=== PATIENT | female | born 1965 | race Caucasian/White ===

== ENCOUNTER 2021-08-02 05:33 | Outpatient (CLI) | payer BC ==
[~2021-08-02] VITALS: Ht 170.2 cm; Wt 88.6 kg
[2021-08-02] MEDS ORDERED: PANT40TA52 PO (09:35)
[2021-08-02] MEDS ORDERED: SPIR25TA PO (09:35)
[2021-08-02] MEDS ORDERED: FEXO1TAB40 PO (09:37)
[2021-08-02] MEDS ORDERED: MULT-436 PO (09:37)
[2021-08-02] MEDS ORDERED: VITA100T4 PO (09:37)
[2021-08-02] MEDS ORDERED: L.AC1CAP6 PO (09:37)
== END 2021-08-02 09:56 | disposition home or self-care (01) ==
LOC: PREOP 05:33
PROVIDERS: ATTEND Podiatrist Foot & Ankle Surgery
DX: Z01.818 Encounter for other preprocedural examination (principal)

== ENCOUNTER 2021-08-09 06:08 | Day surgery (SDC) | payer BC ==
[~2021-08-09] VITALS: Ht 170.2 cm; Wt 88.6 kg
[2021-08-09] VITALS (13 sets, daily range): BP systolic 103–129; BP diastolic 63–725
[~2021-08-09 06:08] MED LIST: FEXO1TAB40 PO; L.AC1CAP6 PO; MULT-436 PO; PANT40TA52 PO; SPIR25TA PO; VITA100T4 PO
[2021-08-09] MEDS ORDERED: ceFAZolin INJECTION 1,000 MG VIAL IV ONE (06:15)
[2021-08-09] MEDS: LACTATED RINGERS 1,000 ML IV PRN ×2 (06:45→09:10)
--- NOTE | 2021-08-09 07:32 | Progress Note-Pre Operative ---
Pre-Operative Progress Note H&P Reviewed The H&P was reviewed, patient examined and no changes noted. Date Seen by Provider: Aug 09, 2021 Time Seen by Provider: 07:31 Date H&P Reviewed: Aug 09, 2021 Time H&P Reviewed: 07:31 Pre-Operative Diagnosis: Hallux Valgus, Hypertrophic 2nd metatarsal, right NATO HENRIQUEZ DPAdrián Aug 09, 2021 07:32
[2021-08-09] MEDS ORDERED: LIDOCAINE 1% INJ 20 ML VIAL ONE (07:33)
[2021-08-09] MEDS ORDERED: BUPIVACAINE 0.5% 30 ML (SENSORCAINE) VIAL ONE (07:34)
[2021-08-09] MEDS ORDERED: fentaNYL INJ 100 MCG/2 ML AMP ONE (07:38)
[2021-08-09] MEDS ORDERED: MIDAZOLAM 2 MG/2 ML (VERSED) VIAL ONE (07:39)
[2021-08-09] MEDS ORDERED: LIDOCAINE PF 2% 5 ML (XYLOCAINE) VIAL ONE (09:17)
[2021-08-09] MEDS ORDERED: proPOfol 200 MG/20 ML (DIPRIVAN) VIAL IV ONE (09:17)
[2021-08-09] MEDS ORDERED: HYDROmorphone 2 MG/ML VIAL (DILAUDID) ONE (09:17)
[2021-08-09] MEDS ORDERED: ONDANSETRON 4 MG/2 ML (SDV) Z0FRAN ONE (09:17)
[2021-08-09] MEDS ORDERED: SEVOFLURANE (ULTANE) 15 ML INHAL SOLN ONE (11:07)
--- NOTE | 2021-08-09 11:14 | Progress Note-Post Operative ---
Post-Operative Progess Note Surgeon (s)/Fashion Director Party Plan Sales (s) Surgeon NATO HENRIQUEZ DPM Fashion Director Party Plan Sales: none Pre-Operative Diagnosis Hallux Valgus, Hypertrophic 2nd metatarsal, right Post-Operative Diagnosis same Procedure & Operative Findings Date of Procedure 08/09/21 Procedure Performed/Findings Lapidus-Jayy bunionectomy, right 2nd metatarsal osteotomy, right Anesthesia Type General Estimated Blood Loss Estimated blood loss (mL): Minimal Specimens/Packing Specimens Removed none NATO HENRIQUEZ DPM Aug 09, 2021 11:13
[2021-08-09] MEDS ORDERED: LACTATED RINGERS 1,000 ML IV SCH (11:15)
[2021-08-09] MEDS ORDERED: HYDROcodone/APAP 5 MG/325 MG (LORTAB) TAB PO PRN (11:15)
[2021-08-09] MEDS ORDERED: ACHD5005 PO (11:16)
[2021-08-09] MEDS ORDERED: CEPH500C PO (11:16)
--- NOTE | 2021-08-09 11:37 | Anesthesia-General Post-Op ---
General Patient Condition Mental Status/LOC: Same as Preop Cardiovascular: Satisfactory Nausea/Vomiting: Absent Respiratory: Satisfactory Pain: Controlled Complications: Present Post Op Complications Complications See Anesthesia Record. Patient started desaturating and bile noted in LMA approximately 1030. Initial sats in recovery 91%. Once patient awake and oral airway out, SaO2 98%. Will make sure patient is aware on discharge re: potential aspiration in case she begins to show signs of aspiration pneumonia once at home. Follow Up Care/Instructions Patient Instructions None needed. Anesthesia/Patient Condition Patient Condition Patient is doing well, no complaints, stable vital signs, no apparent adverse anesthesia problems. No complications reported per nursing. TAZ BUTLER CRNA Aug 09, 2021 11:37
[2021-08-09] MEDS ORDERED: ONDANSETRON 4 MG/2 ML (SDV) Z0FRAN IVP PRN (11:45)
[2021-08-09] MEDS ORDERED: morphine INJ 10 MG/ML 1ML (SYR OR VIAL) IVP ONE (11:45)
--- NOTE | 2021-08-09 14:06 | Physical Therapy Ortho Eval ---
PT Orthopedic Evaluation Type of Surgery Prior Level of Function Current Living Status: Spouse Locomotion (Upon Admit): Independent Established Durable Medical Eq: None Subjective Subjective Patient reports 0/10 pain currently. Reports feeling dizziness upon sitting up. Patient given time for dizziness to subside and she reports she is ready to attempt gait and steps. Entry Into Home: Stairs With Railing Steps Into Home: 3 Steps Inside Home: 0 Motor Control Motor Control: Motor Control WNL ROM ROM: WFL, except focal deficit Strength Strength: Gen Weak,No Focal Deficit Transfer SCALE: Activities may be completed with or without assistive devices. 4-Uojzkxygce-qzxymho completes the activity by him/herself with no assistance from a helper. 5-Set-up or Clean-up Assistance-helper sets up or cleans up; patient completes activity. [place] assists only prior to or following the activity. 4-Supervision or Touching Assistance-helper provides verbal cues and/or touching/steadying and/or contact guard assistance as patient completes activity. Assistance may be provided throughout the activity or intermittently. 3-Partial/Moderate Assistance-helper does LESS THAN HALF the effort. [place] lifts, holds or supports trunk or limbs, but provides less than half the effort. 2-Substantial/Maximal Assistance-helper does MORE THAN HALF the effort. [place] lifts or holds trunk or limbs and provides more than half the effort. 8-Lstbdfuvk-lcutod does ALL the effort. Patient does none of the effort to complete the activity. Or, the assistance of 2 or more helpers is required for the patient to complete the activity. If activity was not attempted, code reason: 7-Patient Refused. 9-Not Applicable-not attempted and the patient did not perform the activity before the current illness, exacerbation or injury. 10-Not Attempted due to Environmental Limitations-(lack of equipment, weather restraints, etc.). 88-Not Attempted due to Medical Conditions or Safety Concerns. Transfers (B, C, W/C) (QC): 4 Gait Gait Assistive Device: Crutches Right Lower Extremity: Right Weight Bearing Status RLE: Non Weight Bearing Left Lower Extremity: Left Weight Bearing Status LLE: Full Weight Bearing Gait (QC): 3 Distance (QC): 1=up to 49 ft Distance: 20 Gait Level of Assist: 3 Treatment Rendered Treatment: Gait Train Assessment/Goals Goal Time Frame: 1 Visit Safe Ambulation: No Patient ambulates with min A 20 feet total with axillary crutches adjusted and fit to 5'7". Crutches appeared to fit appropriately to her height. Patient ambulates with appropriate hop to gait pattern on the left LE, NWB on the right LE and proper use of crutches, however patient unsteady throughout gait. Attempted ascend/descend 1 step x 3 to mimic entrance to home. Patient was able to ascend 2 steps, descend 1 step, and prior to descent of 2nd step reports she was feeling very hot and required mod/max A for stand to sit into w/c. Patient reports she feels like she is going to pass out. Will attempt stairs again to ensure safe discharge home. Plan Treatment Plan: Discharge PT/Family Agrees to Plan: Yes Time Time In: 1315 Time Out: 1350 Total Billed Treatment Time: 35 Billed Treatment Time Sharad Martinez JOHN A PT Aug 09, 2021 14:06
--- NOTE | 2021-08-09 14:59 | Diagnostic Imaging Report ---
INDICATION: Postop. FINDINGS: Two-view right foot shows postsurgical changes to the first and second metatarsals as well as an osteotomy in the proximal phalanx of the great toe. Alignment appeared anatomic. No suspicious retained opaque foreign body. IMPRESSION: Good appearance of the anatomically aligned postop foot. No suspicious foreign body or acute bony pathology. Dictated by: Dictated on workstation # [id number]
--- NOTE | 2021-08-09 21:22 | OPERATIVE REPORT ---
DATE OF SERVICE: 08/09/2021 SURGEON: Lydia Henriquez DPM. PREOPERATIVE DIAGNOSIS: Hallux abductovalgus metatarsal primus varus, right foot. Secondary diagnosis: Hypertrophic right second metatarsal. POSTOPERATIVE DIAGNOSIS: Hallux abductovalgus metatarsal primus varus, right foot. Secondary diagnosis: Hypertrophic right second metatarsal. PROCEDURES: 1. Modified Lapidus Jayy bunionectomy, right. 2. Second metatarsal osteotomy, right foot. WOUND CLASS: Clean. ANESTHESIA: General. HEMOSTASIS: Pneumatic thigh tourniquet at 250 mmHg. INDICATION: This 56-year-old female presents complaining of painful right foot. Conservative therapy is met with unsatisfactory results and the patient is agreeable to surgical intervention after risks and complications were discussed at length. No guarantees were extended to the patient and she is willing to proceed. DESCRIPTION OF PROCEDURE: The patient was brought back to the operating table, placed in secure supine position. General anesthetic was then induced. Appropriate timeout was performed. Pneumatic thigh tourniquet was placed on the right lower extremity over several layers of padding. The right foot was then prepped and draped in normal sterile manner. anesthesia was performed with local utilizing 1:1 mixture of 1% Xylocaine, 0.5% Marcaine with 9 mL injected in a Isabel block as well as a local infusion to the second metatarsal. Next, attention was then directed to the dorsal aspect of the right first metatarsal cuneiform joint where a 5 cm longitudinal linear incision was created. The incision was deepened in the same plane with great care to identify and retract all vital neurovascular structures. Only necessary blood vessels were cauterized as encountered. The incision was deepened down to the deep tissue overlying the capsule where a medial to lateral capsulotomy was performed. This exposed the distal medial cuneiform and base of the first metatarsal. Next, utilizing a power sagittal saw, the articular cartilage of the distal cuneiform was cut perpendicular to the long axis of the second metatarsal. Next, the articular cartilage at the base of the first metatarsal was cut perpendicular to the long axis of the first metatarsal. Once the first metatarsal was reapproximated to the medial cuneiform, there was good reduction of the first intermetatarsal angle. This was confirmed by intraoperative C-arm. The arthrodesis site was temporarily held in place with a 0.062 smooth K-wire. Next, utilizing a [place] 28 Lapidus system, the arthrodesis site was held in its new rectus alignment. The 3-hole Lapidus plate was secured at its most proximal aspect to the medial cuneiform utilizing two 3.5 locking screws of 18 mm of length. Next, utilizing the drill guide, a guidewire was driven from dorsal distal to proximal plantar across the arthrodesis site and a short thread 3.5 screw of 32 mm of length was driven across allowing for excellent compression. Next, the nonlocking 3.5 screw of 14 mm length was applied to the most distal aspect of the Lapidus plate allowing for additional compression and finally the last screw was a 3.5 mm of 18 mm of length locking to the base of the first metatarsal. Excellent fixation was appreciated at this time. The wound was flushed with copious amounts of normal saline. Placement was confirmed with C-arm. The wound was flushed after which closure was performed in layers. Deep closure was performed with 3-0 Vicryl, superficial with 4-0 Vicryl, skin closure with 4-0 Prolene in a horizontal mattress type stitch. Attention was then directed to the dorsal aspect of the right first metatarsophalangeal joint where a 4 cm longitudinal linear incision was created. The incision was deepened in the same plane with great care to identify and retract all vital neurovascular structures. All the necessary blood vessels were cauterized as encountered. The incision was deepened down to capsule where a longitudinal capsulotomy was performed exposing the hypertrophic dorsal and medial eminence to the first metatarsal head. These eminences were resected utilizing a power sagittal saw. There was full thickness degeneration to the articular cartilage to the dorsal medial aspect of the first metatarsal head. This area was fenestrated as well as hand rasp was utilized to reduce this bony prominence as well as there is full thickness degeneration of bone and articular cartilage. The wound was flushed with copious amounts of normal saline. Access was gained into the first intermetatarsal space where a lateral release was performed to the first metatarsophalangeal joint and a release of the conjoint tendon of the adductor hallucis. Attention was then directed to the proximal phalanx where an Jayy type osteotomy was performed. Subperiosteal dissection was carried out, after which a power sagittal saw was utilized to cut out a wedge of bone with the base medial and lateral wedge was resected with the lateral cortices held intact of the proximal phalanx. Once the gap was closed, two pilot plant technician holes were created at the dorsal medial aspect of the osteotomy after which a 28-gauge monofilament wire was then passed through the pilot plant technician hole securing the osteotomy in a closed position. The wound was flushed with copious amounts of normal saline. Closure was performed in layers. Deep closure was performed with 3-0 Vicryl, superficial with 4-0 Vicryl and skin closure with 4-0 Prolene in a horizontal mattress type stitch. Attention was then directed to the dorsal aspect of the right second metatarsophalangeal joint where a 4 cm longitudinal linear incision was created. The incision was deepened in the same plane with great care to identify and retract all vital neurovascular structures. The incision was deepened down to the capsule that was just medial to the extensor digitorum longus tendon. A longitudinal capsulorrhaphy was performed allowing for access to the second metatarsal head. Utilizing a power sagittal saw, a Mo type osteotomy was performed allowing the capital fragment to translocate proximally. The cut was made parallel to the weightbearing surface for the patient. Once the capital fragment was translocated proximally, it was fixated in its new position utilizing a 2.0 snap-off screw of 12 mm of length. Excellent bony apposition and fixation was appreciated at this time. The excess bone to the dorsal aspect of the second metatarsal head was resected with a rongeur followed by hand rasp. The wound was flushed with copious amounts of normal saline and closure was then performed. Deep closure was performed with 3-0 Vicryl, superficial with 4-0 Vicryl, skin closure with 4-0 Prolene in a horizontal mattress type stitch. Postoperative injection consisted of 15 mL of 0.5% Marcaine plain injected in a Isabel block as well as an infusion to the second ray. Postoperative dressing consisted of Betadine soaked Adaptic, sterile 4 x 4, sterile Kerlix, all secured with a Coban wrap. The patient tolerated the anesthesia and procedure well and was transported from the operating room to the recovery area with vital signs stable and vascular status intact to all digits of the right foot. The patient was given a prescription for Keflex as well as Vicodin. She is to follow up in my office in 10 days' period of time and she is to be nonweightbearing on the right lower extremity. She will follow up in the office sooner if needed. Job ID: [id number] DocumentID: [id number] Dictated Date: 08/09/2021 11:34:27 Care Asst Date: 08/09/2021 21:21:30 Dictated By: LYDIA HENRIQUEZ DPM
== END 2021-08-09 15:10 | disposition home or self-care (01) ==
LOC: SDC 06:08
PROVIDERS: ATTEND Podiatrist Foot & Ankle Surgery
DX: M20.11 Hallux valgus (acquired), right foot (principal); M20.31 Hallux varus (acquired), right foot
CPT/HCPCS: 73620; 84703; 87081